=== PATIENT | male | born 1965 | race American Indian/Alaskan Native ===

== ENCOUNTER 2020-03-18 00:15 | Emergency (ER) | payer SELFPAY ==
[2020-03-18] MEDS ORDERED: ONDANSETRON 4 MG ODT TAB PO ONE (00:58)
[2020-03-18] MEDS ORDERED: FAMOTIDINE 20 MG TAB PO ONE (00:58)
[2020-03-18] MEDS ORDERED: DICYCLOMINE 20 MG TAB PO ONE (00:59)
[2020-03-18 01:30] LABS: Basophils % (Auto) 0.5 % (0.0-1.8); Hematocrit 44.3 % (35.5-45.6); Hemoglobin 15.3 gm/dl (11.8-15.2); Lymphocytes # (Auto) 1.5 K/mm3 (1.2-5.4); Lymphocytes % (Auto) 27.5 % (13.4-35.0); Mean Corpuscular HGB Conc 34 % (32-34); Mean Corpuscular Volume 100 fl (84-94); Monocytes # (Auto) 0.2 K/mm3 (0.0-0.8); Monocytes % (Auto) 4.4 % (0.0-7.3); Platelet Count 184 K/mm3 (140-440); Red Blood Count 4.42 M/mm3 (3.65-5.03); Red Cell Distribution Width 13.7 % (13.2-15.2)
[2020-03-18 01:52] LABS: Alanine Aminotransferase 37 units/L (7-56); Albumin 4.6 g/dL (3.9-5); BUN/Creatinine Ratio 16; Blood Urea Nitrogen 16 mg/dL (9-20); Calcium 9.9 mg/dL (8.4-10.2); Hemolysis Index 29
[2020-03-18 01:57] VITALS: BP 136/95
--- NOTE | 2020-03-18 02:57 | Emergency Department Report ---
ED N/V/D HPI - General Chief complaint: Nausea/Vomiting/Diarrhea Stated complaint: NAUSEA/FATIGUE Source: patient Mode of arrival: Ambulatory Limitations: No Limitations - History of Present Illness Initial comments: Patient is a 55-year-old -Cypriot male with a history of hypertension who presents to the ED with complaint of acute onset persistent intermittent nausea and vomiting and generalized fatigue and weakness for the last 12 hours. Patient states that initially he could not keep anything down but subsequently has been able to drink fluids with no vomiting episodes but persistent nausea. Patient denies abdominal pain, dizziness, syncope, fever, chills, cough, sore throat, chest pain, shortness of breath, headache, change in vision, dysuria, urinary frequency and urgency, hematemesis, hemoptysis, change in vision or seizures. MD complaint: nausea, vomiting -: Sudden, hour(s) (12) Description of Vomiting: food contents, watery, bilious Associated Abdominal Pain: No Location: diffuse Radiation: none Severity: mild Pain Scale: 1 Quality: dull Consistency: intermittent Improves with: none Worsens with: none Context: possible food poisoning Associated Symptoms: denies other symptoms, loss of appetite, malaise, nausea/vomiting. denies: myalgias, chest pain, cough, diaphoresis, fever/chills, headaches, rash, dysuria, shortness of breath, syncope, weakness, other - Related Data Previous Rx's Medication Instructions Recorded Last Taken Type Dicyclomine [Bentyl] 20 mg PO Q6H PRN #24 tablet 03/18/20 Unknown Rx Famotidine [Pepcid] 20 mg PO BID #30 tablet 03/18/20 Unknown Rx Ondansetron [Zofran Odt] 4 mg PO Q6HR PRN #20 tab.rapdis 03/18/20 Unknown Rx Allergies Allergy/AdvReac Type Severity Reaction Status Date / Time No Known Allergies Allergy Unverified 03/18/20 02:02 ED Review of Systems ROS: Stated complaint: NAUSEA/FATIGUE Other details as noted in HPI Constitutional: malaise, weakness. denies: chills, fever Eyes: denies: eye pain, eye discharge, vision change ENT: denies: ear pain, throat pain Respiratory: denies: cough, shortness of breath, wheezing Cardiovascular: denies: chest pain, palpitations Endocrine: no symptoms reported Gastrointestinal: nausea, vomiting. denies: abdominal pain, diarrhea Genitourinary: denies: urgency, dysuria Musculoskeletal: arthralgia, myalgia. denies: back pain, joint swelling Skin: denies: rash, lesions Neurological: denies: headache, weakness, paresthesias Psychiatric: denies: anxiety, depression Hematological/Lymphatic: denies: easy bleeding, easy bruising ED Past Medical Hx - Past Medical History Previous Medical History?: Yes Hx Hypertension: Yes - Surgical History Past Surgical History?: No - Social History Smoking Status: Current Every Day Smoker Substance Use Type: None - Medications Home Medications: Home Medications Medication Instructions Recorded Confirmed Last Taken Type Dicyclomine [Bentyl] 20 mg PO Q6H PRN #24 tablet 03/18/20 Unknown Rx Famotidine [Pepcid] 20 mg PO BID #30 tablet 03/18/20 Unknown Rx Ondansetron [Zofran Odt] 4 mg PO Q6HR PRN #20 tab.rapdis 03/18/20 Unknown Rx ED Physical Exam - General Limitations: No Limitations General appearance: alert, in no apparent distress - Head Head exam: Present: atraumatic, normocephalic, normal inspection - Eye Eye exam: Present: normal appearance, PERRL, EOMI Pupils: Present: normal accommodation - ENT ENT exam: Present: normal exam, normal orophraynx, mucous membranes moist, TM's normal bilaterally, normal external ear exam - Neck Neck exam: Present: normal inspection, full ROM - Respiratory Respiratory exam: Present: normal lung sounds bilaterally. Absent: respiratory distress, wheezes, rales, rhonchi, stridor, chest wall tenderness, accessory muscle use - Cardiovascular Cardiovascular Exam: Present: regular rate, normal rhythm, irregular rhythm, normal heart sounds. Absent: systolic murmur, diastolic murmur, rubs, gallop - GI/Abdominal GI/Abdominal exam: Present: soft, normal bowel sounds. Absent: tenderness, guarding, rebound, hyperactive bowel sounds, hypoactive bowel sounds, organomegaly - Extremities Exam Extremities exam: Present: normal inspection, full ROM, normal capillary refill - Back Exam Back exam: Present: normal inspection, full ROM. Absent: tenderness, CVA tenderness (R), CVA tenderness (L), muscle spasm, paraspinal tenderness, vertebral tenderness - Neurological Exam Neurological exam: Present: alert, oriented X3, CN II-XII intact, normal gait, reflexes normal - Psychiatric Psychiatric exam: Present: normal affect, normal mood - Skin Skin exam: Present: warm, dry, intact, normal color. Absent: rash ED Course Vital Signs 03/18/20 01:53 Temperature 98.7 F Pulse Rate 70 Respiratory 22 Rate Blood Pressure 136/95 O2 Sat by Pulse 97 Oximetry ED Medical Decision Making - Lab Data Result diagrams: 03/18/20 01:04 03/18/20 01:04 - Medical Decision Making This is a 55-year-old -Cypriot male with a history of hypertension who presents to the ED with complaint of acute onset persistent intermittent nausea and vomiting and generalized fatigue and weakness for the last 12 hours. Patient states that initially he could not keep anything down but subsequently has been able to drink fluids with no vomiting episodes but persistent nausea. In the ED, patient is alert and oriented x3 and is not in distress with stable vital signs. Lab test results were reviewed and are all nonactionable. Patient was treated for nausea and vomiting and also given antacids. On reevaluation, patient has been drinking fluids in the ED with no difficulty or nausea or vomiting. Patient will discharge home on medications and advised to maintain a clear liquid diet for 12 to 24 hours, take medications and drink plenty of fluids and follow-up with the primary care physician in 3 to 5 days for reevaluation. Patient was advised to return to the ED immediately if symptoms get worse. - Differential Diagnosis Viral gastroenteritis; viral syndrome; dehydration; GERD Critical care attestation.: If time is entered above; I have spent that time in minutes in the direct care of this critically ill patient, excluding procedure time. ED Disposition Clinical Impression: Viral gastroenteritis, Nausea and vomiting in adult patient Disposition: DC-01 TO HOME OR SELFCARE Is pt being admited?: No Does the pt Need Aspirin: No Condition: Stable Instructions: Viral Gastroenteritis, Adult, [id number], Nausea and Vomiting, Adult, [id number] Additional Instructions: All lab test results were reviewed and are all nonactionable. Therefore maintain a clear liquid diet for 12 to 24 hours, drink plenty of fluids, take medication as needed for nausea and vomiting. Return to the ED immediately if symptoms get worse. Prescriptions: Dicyclomine [Bentyl] 20 mg PO Q6H PRN #24 tablet PRN Reason: Abdominal pain Famotidine [Pepcid] 20 mg PO BID #30 tablet Ondansetron [Zofran Odt] 4 mg PO Q6HR PRN #20 tab.rapdis PRN Reason: Nausea Referrals: [facility] [Provider Group] - 3-5 Days Forms: Work/School Release Form(ED) Time of Disposition: 02:54 Print Language: SLOVENIAN
== END 2020-03-18 04:55 | disposition home or self-care (01) ==
LOC: ED 00:15
DX: A08.39 Other viral enteritis (principal); I10 Essential (primary) hypertension; F17.200 Nicotine dependence, unspecified, uncomplicated; Z79.899 Other long term (current) drug therapy
CPT/HCPCS: 36415; 80053; 83690; 85025; 99283; Q0162

== ENCOUNTER 2020-06-02 06:22 | Emergency (ER) | payer SELFPAY ==
--- NOTE | 2020-06-02 07:43 | Event Note ---
ED Screening Note ED Screening Note: right toe pain ? etio This initial assessment/diagnostic orders/clinical plan/treatment(s) is/are subject to change based on patients health status, clinical progression and re- assessment by fellow clinical providers in the ED. Further treatment and workup at subsequent clinical providers discretion. Patient/guardian urged not to elope from the ED as their condition may be serious if not clinically assessed and managed. Initial orders include: xr
--- NOTE | 2020-06-02 08:18 | XRay Report ---
RIGHT TOES 3 VIEWS INDICATION / CLINICAL INFORMATION: pain 2ND DIGIT CONTUSION. COMPARISON: None available. FINDINGS: No significant skeletal abnormality Signer Name: Mat Mancia MD FACR Signed: 06/02/2020 8:14 AM Workstation Name: [id number]
[2020-06-02 08:37] VITALS: BP 163/103
--- NOTE | 2020-06-02 08:37 | Emergency Department Report ---
ED Lower Extremity HPI - General Chief Complaint: Extremity Injury, Lower Stated Complaint: FOOT PAIN Time Seen by Provider: 06/02/20 07:36 Source: patient Mode of arrival: Ambulatory Limitations: No Limitations - History of Present Illness Initial Comments: 55 YO AA MALE COMES TO ER CO TOE PAIN. NO TRAUMA. REPORTS ITS ONLY WHEN HE WEARS HIS SHOES; HE CAN ONLY WEAR FLIP FLOPS. PALPATION DOES NOT CAUSE PAIN. HE IS AMBULATORY TO ER. HE HAS A CALLOUS ON THE SURFACE OF THE TOE WHERE IT IS RUBBING ON HIS OTHER TOE. PT BP NOTED TO BE INCREASED ON ADMIT. HE HAS NO CP. NO SOB. HE IS NEURO INTACT. DENIES HEADACHE. HE STATES HE IS NOT ON BP MEDS BECAUSE IT HAS BEEN CONTROLLED SINCE HE LOST WEIGHT. Complaint: other -: Gradual, days(s) Place: home Severity: mild Improves With: nothing Worsens With: movement - Related Data Previous Rx's Medication Instructions Recorded Last Taken Type Dicyclomine [Bentyl] 20 mg PO Q6H PRN #24 tablet 03/18/20 Unknown Rx Famotidine [Pepcid] 20 mg PO BID #30 tablet 03/18/20 Unknown Rx Ondansetron [Zofran Odt] 4 mg PO Q6HR PRN #20 tab.rapdis 03/18/20 Unknown Rx Ibuprofen [Motrin] 800 mg PO Q8HR PRN #30 tablet 06/02/20 Unknown Rx Allergies Allergy/AdvReac Type Severity Reaction Status Date / Time No Known Allergies Allergy Verified 06/02/20 06:48 ED Review of Systems ROS: Stated complaint: FOOT PAIN Other details as noted in HPI Comment: All other systems reviewed and negative ED Past Medical Hx - Past Medical History Previous Medical History?: Yes Hx Hypertension: Yes (not on meds) Hx Asthma: Yes - Surgical History Past Surgical History?: No - Family History Family history: no significant - Social History Smoking Status: Current Every Day Smoker Substance Use Type: None - Medications Home Medications: Home Medications Medication Instructions Recorded Confirmed Last Taken Type Dicyclomine [Bentyl] 20 mg PO Q6H PRN #24 tablet 03/18/20 Unknown Rx Famotidine [Pepcid] 20 mg PO BID #30 tablet 03/18/20 Unknown Rx Ondansetron [Zofran Odt] 4 mg PO Q6HR PRN #20 tab.rapdis 03/18/20 Unknown Rx Ibuprofen [Motrin] 800 mg PO Q8HR PRN #30 tablet 06/02/20 Unknown Rx ED Physical Exam - General Limitations: No Limitations General appearance: alert, in no apparent distress - Head Head exam: Present: atraumatic, normocephalic - Eye Eye exam: Present: normal appearance - ENT ENT exam: Present: mucous membranes moist - Neck Neck exam: Present: normal inspection - Respiratory Respiratory exam: Present: normal lung sounds bilaterally. Absent: respiratory distress - Cardiovascular Cardiovascular Exam: Present: regular rate, normal rhythm. Absent: systolic murmur, diastolic murmur, rubs, gallop - GI/Abdominal GI/Abdominal exam: Present: soft, normal bowel sounds - Rectal Rectal exam: Present: deferred - Extremities Exam Extremities exam: Present: normal inspection - Back Exam Back exam: Present: normal inspection - Neurological Exam Neurological exam: Present: alert, oriented X3 - Psychiatric Psychiatric exam: Present: normal affect, normal mood - Skin Skin exam: Present: warm, dry, intact, normal color, other. Absent: rash ED Course Vital Signs 06/02/20 08:36 Temperature 98.4 F Pulse Rate 67 Respiratory 17 Rate Blood Pressure 163/103 [Right] O2 Sat by Pulse 97 Oximetry ED Lower Extremity MDM - Radiology Data Radiology results: report reviewed, image reviewed NO FX - Medical Decision Making XRAY NEG PAIN NOT CONSISTENT WITH GOUT I THINK THE PAIN IS MORE A FUNCTION OF HIS ANATOMY AND THE TOES RUBBING TOGETHER CAUSING A CALLOUS AND PAIN. PT DC HOME WITH DC PLAN OF CARE AND PCP FOLLOW UP. PT VERBALIZES UNDERSTANDING OF PLAN OF CARE. Vital Signs 06/02/20 08:36 Temperature 98.4 F Pulse Rate 67 Respiratory 17 Rate Blood Pressure 163/103 [Right] O2 Sat by Pulse 97 Oximetry - Differential Diagnosis RO FX/GOUT Critical care attestation.: If time is entered above; I have spent that time in minutes in the direct care of this critically ill patient, excluding procedure time. ED Disposition Clinical Impression: Toe pain, Elevated blood pressure reading Disposition: DC-01 TO HOME OR SELFCARE Is pt being admited?: No Does the pt Need Aspirin: No Condition: Stable Additional Instructions: keep a piece of cotton between toes to minimize the rubbing of the 2 toes follow up with pcp referral below med as ordered today for pain keep toes clean and dry well before putting shoe on Prescriptions: Ibuprofen [Motrin] 800 mg PO Q8HR PRN #30 tablet PRN Reason: Pain, Moderate (4-6) Referrals: ZOEY KIM MD [Staff Physician] - 3-5 Days Time of Disposition: 08:39
== END 2020-06-02 08:40 | disposition home or self-care (01) ==
LOC: ED 06:22
DX: M79.674 Pain in right toe(s) (principal); R03.0 Elevated blood-pressure reading, without diagnosis of hypertension; J45.909 Unspecified asthma, uncomplicated; Z79.899 Other long term (current) drug therapy
CPT/HCPCS: 99283

== ENCOUNTER 2020-06-08 20:31 | Emergency (ER) | payer OTHER ==
--- NOTE | 2020-06-08 21:37 | Event Note ---
ED Screening Note Date of service: 06/08/20 Time: 21:36 ED Screening Note: 55-year-old male patient presents to the emergency department with complaints of periumbilical abdominal pain, nausea, vomiting, and diarrhea starting 2 days ago. Patient states he has had too many episodes of vomiting and diarrhea to count. No known sick contacts. No current steroid or antibiotic use. No recent travel. No history of prior abdominal surgeries. No black or bloody stools. Hypertensive in triage. General: Awake, appropriately interactive, no acute distress. Neck: Supple. Full range of motion intact. Cardiovascular: Normal peripheral perfusion. Pulmonary: No respiratory distress. Patient is speaking normally without use of accessory muscles. Abdomen: Soft, nondistended. Periumbilical tenderness without guarding, rigidity, or rebound. Skin: No apparent rashes or lesions. Neurological: No facial asymmetry. Speech is clear. Follows commands. Patient is alert and oriented. Musculoskeletal: Moves all four extremities spontaneously with normal range of motion. Psych: Cooperative. Appropriate mood and affect. I have greeted and performed a focused rapid initial assessment of this patient. A comprehensive ED assessment and evaluation of the patient, analysis of all test results, and completion of the medical decision-making process will be conducted by additional ED providers. This initial assessment/diagnostic orders/clinical plan/treatment(s) is/are subject to change based on patients health status, clinical progression and re-assessment. Further treatment and workup at subsequent clinical provider's discretion. Patient/guardian urged not to elope from the ED as their condition may be serious if not clinically assessed and managed.
[2020-06-08 22:00] LABS: Basophils % (Auto) 0.4 % (0.0-1.8); Eosinophils % (Auto) 0.4 % (0.0-4.3); Hematocrit 45.2 % (35.5-45.6); Hemoglobin 15.6 gm/dl (11.8-15.2); Lymphocytes # (Auto) 1.5 K/mm3 (1.2-5.4); Lymphocytes % (Auto) 17.8 % (13.4-35.0); Mean Corpuscular HGB Conc 35 % (32-34); Mean Corpuscular Volume 103 fl (84-94); Monocytes # (Auto) 0.4 K/mm3 (0.0-0.8); Monocytes % (Auto) 4.9 % (0.0-7.3); Platelet Count 147 K/mm3 (140-440); Red Cell Distribution Width 13.4 % (13.2-15.2)
[2020-06-08 22:01] LABS: Alanine Aminotransferase 26 units/L (7-56); Albumin 3.9 g/dL (3.9-5); BUN/Creatinine Ratio 22; Blood Urea Nitrogen 26 mg/dL (9-20); Calcium 8.9 mg/dL (8.4-10.2); Hemolysis Index 17
[2020-06-08] MEDS ORDERED: ONDANSETRON 4 MG ODT TAB PO ONE (22:45)
[2020-06-08] MEDS ORDERED: SODIUM CHLORIDE 0.9% 1000 ML 1,000 ML IV ONE (22:45)
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
[2020-06-08] MEDS ORDERED: ONDANSETRON 4 MG/2 ML INJ IV ONE (22:46)
[2020-06-08 22:53] LABS: Bilirubin,Urine NEG (Negative); Blood,Urine SM (Negative); Color,Urine Yellow (Yellow); Mucus,Urine FEW /HPF; Protein,Urine <15 mg/dL mg/dL (Negative); Urobilinogen,Urine < 2.0 mg/dL (<2.0)
[2020-06-08] MEDS ORDERED: cefTRIAXone/NS 1 GM/50 ML 1 GM/50 ML BAG IV ONE (23:38)
[2020-06-09] MEDS ORDERED: ONDANSETRON 4 MG/2 ML INJ ONE (01:03)
[2020-06-09] MEDS ORDERED: ONDANSETRON 4 MG/2 ML INJ IV ONE (01:04)
[2020-06-09] MEDS ORDERED: hydrALAZINE 20 MG/1 ML INJ IV ONE (01:08)
[2020-06-09 01:56] VITALS: BP 180/105
== END 2020-06-09 01:40 | disposition home or self-care (01) ==
LOC: ED 20:31
DX: K52.9 Noninfective gastroenteritis and colitis, unspecified (principal); E86.0 Dehydration; I10 Essential (primary) hypertension; J45.909 Unspecified asthma, uncomplicated; Z79.899 Other long term (current) drug therapy; Z98.890 Other specified postprocedural states
CPT/HCPCS: 36415; 80053; 81001; 83690; 83735; 85025; 96361; 96365; 96375; 96376; 99283; J0360; J2405; J7030

== ENCOUNTER 2020-11-11 08:58 | Emergency (ER) | payer OTHER ==
[2020-11-11] MEDS ORDERED: CYCLOBENZAPRINE 10 MG TAB PO ONE (09:20)
[2020-11-11] MEDS ORDERED: KETOROLAC 30 MG/1 ML INJ IM ONE (09:20)
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
[2020-11-11 10:53] VITALS: BP 144/91
== END 2020-11-11 10:53 | disposition home or self-care (01) ==
LOC: ED 08:58
DX: M54.6 Pain in thoracic spine (principal); I10 Essential (primary) hypertension; J45.909 Unspecified asthma, uncomplicated; F17.200 Nicotine dependence, unspecified, uncomplicated; V87.7XXA Person injured in collision between other specified motor vehicles (traffic), initial encounter; Y93.89 Activity, other specified; Y92.488 Other paved roadways as the place of occurrence of the external cause; Y99.8 Other external cause status
CPT/HCPCS: 72072; 72100; 96372; 99283; J1885